=== PATIENT | female | born 1970 | race Caucasian/White ===

== ENCOUNTER 2020-09-10 11:42 | Outpatient (CLI) | payer BC, SELFPAY ==
[2020-09-10 12:58] LABS: Alanine Aminotransferase 20 U/L (4-35); Albumin Level 4.3 g/dL (3.5-5.1); Alkaline Phosphatase 46 U/L (38-126); Anion Gap 12 mmol/L (8-16); Aspartate Amino Transferase 24 U/L (14-36); Bilirubin,Total 0.3 mg/dL (0.2-1.3); Blood Urea Nitrogen 10 mg/dL (7-17); Calcium 9.4 mg/dL (8.4-10.2); Carbon Dioxide 27 mmol/L (22-30); Chloride 102 mmol/L (98-107); Cholesterol 225 mg/dL (0-200); Estimated Glomerular Filt Rate > 60; Glucose 164 mg/dL (65-105); HDL Direct 61 mg/dL; Potassium 3.9 mmol/L (3.4-5.0); Sodium 141 mmol/L (137-145); Triglycerides 239 mg/dL (<150)
[2020-09-10 13:06] LABS: Hemoglobin A1C 5.6 % (<5.7)
[2020-09-10 13:08] LABS: LDL Cholesterol Direct 148 mg/dL
[2020-09-10 13:35] LABS: Free T4 Free Thyroxine 1.39 ng/mL (0.78-2.19)
== END 2020-09-10 11:43 | disposition home or self-care (01) ==
PROVIDERS: PCP Family Medicine; Visit Provider Physician Assistant
DX: Z13.220 Encounter for screening for lipoid disorders (principal); Z13.1 Encounter for screening for diabetes mellitus; I10 Essential (primary) hypertension; E03.9 Hypothyroidism, unspecified
CPT/HCPCS: 36415; 80053; 80061; 83036; 84439; 84443

== ENCOUNTER 2022-06-23 15:17 | Outpatient (CLI) | payer OTHER, BC, SELFPAY ==
[2022-06-23 15:49] LABS: Hemoglobin A1C 6.3 % (<5.7)
[2022-06-23 15:52] LABS: Alanine Aminotransferase 29 U/L (6-35); Albumin Level 4.4 g/dL (3.5-5.1); Alkaline Phosphatase 44 U/L (38-126); Anion Gap 14 mmol/L (8-16); Aspartate Amino Transferase 24 U/L (14-36); Bilirubin,Total 0.3 mg/dL (0.2-1.3); Blood Urea Nitrogen 37 mg/dL (7-17); Calcium 9.6 mg/dL (8.4-10.2); Carbon Dioxide 25 mmol/L (22-30); Chloride 100 mmol/L (98-107); Cholesterol 190 mg/dL (0-200); Estimated Glomerular Filt Rate 40; Glucose 122 mg/dL (65-110); HDL Direct 47 mg/dL; Potassium 3.7 mmol/L (3.4-5.0); Sodium 139 mmol/L (137-145); Triglycerides 236 mg/dL (<150)
[2022-06-23 16:03] LABS: LDL Cholesterol Direct 108 mg/dL
[2022-06-23 16:13] LABS: Free T4 Free Thyroxine 2.12 ng/mL (0.78-2.19)
[2022-06-23 16:22] LABS: Thyroid Stimulating Hormone < 0.015 uIU/mL (0.465-4.680)
== END 2022-06-23 15:18 | disposition home or self-care (01) ==
PROVIDERS: PCP Family Medicine; Visit Provider Family Medicine
DX: E11.9 Type 2 diabetes mellitus without complications (principal); E03.9 Hypothyroidism, unspecified
CPT/HCPCS: 36415; 80053; 80061; 83036; 84439; 84443

== ENCOUNTER 2022-11-22 07:25 | Outpatient (CLI) | payer OTHER, SELFPAY ==
[2022-11-22 08:08] LABS: Alanine Aminotransferase 29 U/L (6-35); Albumin Level 4.7 g/dL (3.5-5.1); Alkaline Phosphatase 50 U/L (38-126); Anion Gap 8 mmol/L (8-16); Aspartate Amino Transferase 30 U/L (14-36); Bilirubin,Total 0.4 mg/dL (0.2-1.3); Blood Urea Nitrogen 22 mg/dL (7-17); Calcium 9.7 mg/dL (8.4-10.2); Carbon Dioxide 30 mmol/L (22-30); Chloride 104 mmol/L (98-107); Estimated Glomerular Filt Rate 47; Glucose 128 mg/dL (65-110); Sodium 142 mmol/L (137-145)
[2022-11-22 08:36] LABS: Thyroid Stimulating Hormone 0.864 uIU/mL (0.465-4.680)
[2022-11-22 08:59] LABS: Hemoglobin A1C 5.9 % (<5.7)
[2022-11-22 09:42] LABS: Free T4 Free Thyroxine 1.58 ng/mL (0.78-2.19)
== END 2022-11-22 07:26 | disposition home or self-care (01) ==
PROVIDERS: PCP Physician Assistant; Visit Provider Physician Assistant
DX: R73.03 Prediabetes (principal); E03.9 Hypothyroidism, unspecified; I10 Essential (primary) hypertension
CPT/HCPCS: 36415; 80053; 83036; 84439; 84443

== ENCOUNTER 2023-02-04 13:59 | Outpatient (CLI) | payer OTHER, SELFPAY ==
[2023-02-04 14:18] LABS: Hematocrit 37.6 % (37.0-47.0); Hemoglobin 12.5 g/dL (12.0-15.0); Mean Corpuscular HGB Conc 33.2 g/dl (32-36); Mean Corpuscular Hemoglobin 30.4 pg (26-34); Mean Corpuscular Volume 91.5 fl (80-100); Mean Platelet Volume 9.9 fl (7.4-10.4); Platelet Count Result 351 k/mm3 (150-375); Red Blood Count 4.11 M/mm3 (4.2-5.4); Red Cell Distribution Width 13.4 % (11.5-14.5); White Blood Count 8.3 K/mm3 (4.5-10.0)
[2023-02-04 14:30] LABS: Alanine Aminotransferase 39 U/L (6-35); Albumin Level 4.6 g/dL (3.5-5.1); Alkaline Phosphatase 43 U/L (38-126); Anion Gap 8 mmol/L (8-16); Aspartate Amino Transferase 31 U/L (14-36); Bilirubin,Total 0.5 mg/dL (0.2-1.3); Blood Urea Nitrogen 19 mg/dL (7-17); Calcium 9.4 mg/dL (8.4-10.2); Carbon Dioxide 29 mmol/L (22-30); Chloride 102 mmol/L (98-107); Estimated Glomerular Filt Rate 58; Glucose 102 mg/dL (65-110); Potassium 3.6 mmol/L (3.4-5.0); Sodium 139 mmol/L (137-145)
[2023-02-04 15:41] LABS: Vitamin B12 > 1000.0 pg/mL (239-931)
== END 2023-02-04 14:00 | disposition home or self-care (01) ==
PROVIDERS: PCP Family Medicine; Visit Provider Physician Assistant
DX: R53.83 Other fatigue (principal); I10 Essential (primary) hypertension
CPT/HCPCS: 36415; 80053; 82607; 82746; 85027

== ENCOUNTER 2023-03-11 09:10 | Outpatient (CLI) | payer OTHER, SELFPAY ==
--- NOTE | 2023-03-24 06:32 | WPDHOMESLEEP ---
Sleep Study - Home Unattended Date of Study: 03/11/23 Ordering Provider: KELSEA Rodriguez Interpreting Provider: Lisbeth Dailey MD Home Sleep Study Type: Watch PAT Height: 1.63 m Weight: 101.151 kg Body Mass Index: 38.2 Neck Circumference (inches): 16 [place]: 5 Reason for Sleep Study Daytime hypersomnia, poor sleep, nighttime awakenings. Sleep History Cathy Talley is a 53-year-old female with history of hypertension, hyperlipidemia, hypothyroidism, asthma, and depression who underwent a home sleep study ordered by her primary care provider for evaluation of snoring, poor sleep and daytime hypersomnia. She rarely awakens from sleep short of breath. She rarely awakens at night with heartburn, belching or cough.? She frequently snores and occasionally snores loudly enough that others complain. She frequently has trouble sleeping when she has a cold. She never suddenly wakes up gasping for breath during the night. She rarely has breathing problems at night. She constantly sweats excessively at night. She occasionally notices her heart pounding or beating irregularly during the night. She rarely falls asleep during the day. She never falls asleep involuntarily or while driving. She occasionally experiences loss of muscle tone with strong emotion. She occasionally has trouble at work because of sleepiness. She never feels paralyzed on waking or falling asleep. She frequently experiences vivid dreams upon waking or falling asleep. She frequently feels afraid of going to sleep. She occasionally has nightmares. She frequently recalls her dreams. She constantly has thoughts racing through her mind. She rarely feels sad or depressed. She rarely feels anxiety or worry about things. She occasionally notices parts of her body jerk. She rarely kicks during the night. She occasionally feels crawling or aching feelings in her legs. She rarely feels leg pain at night. She frequently grinds her teeth and frequently has morning jaw pain. She occasionally feels bothered by pain during the day and is rarely awakened by pain during the night. She frequently wakes up feeling stiff, sore, and achy in the morning with pain in her neck, spine, or joints. She works weekends and is off work during the week. Her normal bedtime is around midnight on the weekdays and same on the weekends, taking 1 to 2 hours to fall asleep. She typically gets 4-5 hours of sleep or less per night. Her wake up time is around 6am on the weekdays and 7 am on the weekends. She typically wakes up around 2 to 3 times per night, can be awake 1 to 2 hours at a time. She occasionally watches TV before falling asleep. She occasionally takes naps in the afternoon or evening but does not feel refreshed after a short [id number] nap. Habits:? Never tobacco smoker. Her caffeine use is up to 1 caffeinated beverage per day, but not every day. No alcohol or recreational substances. [facility] Past Medical History Medical History Allergic rhinitis, unspecified Asthma Depression Essential (primary) hypertension Hyperlipidemia, unspecified Hypothyroidism, unspecified Nontoxic goiter, unspecified Obesity Surgical History Surgical History H/O excision of ganglion cyst 06/1995 History of bariatric surgery DANIELLE procedure 08/2008 History of delivery History of cholecystectomy 07/1997 History of endometrial ablation 2012 History of total abdominal hysterectomy and bilateral salpingo-oophorectomy 11/20/2017 History of tubal ligation 2012 Family History Family History Other Diabetes mellitus Family history of arthritis Family history of cardiovascular disease Hypertension Social History Social History Smoking status: Never smoker Alcohol intake: curr
[2023-03-24 06:39] VITALS: BMI 38.2
== END 2023-03-12 11:50 | disposition home or self-care (01) ==
LOC: ANHCSM 09:11
PROVIDERS: PCP Family Medicine; Visit Provider Physician Assistant
DX: G47.33 Obstructive sleep apnea (adult) (pediatric) (principal); I10 Essential (primary) hypertension; E78.5 Hyperlipidemia, unspecified; E03.9 Hypothyroidism, unspecified
CPT/HCPCS: 95800

== ENCOUNTER 2024-07-27 07:35 | Outpatient (CLI) | payer OTHER, SELFPAY ==
[2024-07-27 08:18] LABS: LDL Cholesterol Direct 113 mg/dL
[2024-07-27 08:21] LABS: Alanine Aminotransferase 23 U/L (6-35); Albumin Level 4.8 g/dL (3.5-5.1); Alkaline Phosphatase 59 U/L (38-126); Anion Gap 10 mmol/L (4-12); Aspartate Amino Transferase 25 U/L (14-36); Bilirubin,Total 0.5 mg/dL (0.2-1.3); Blood Urea Nitrogen 22 mg/dL (7-17); Calcium 9.9 mg/dL (8.4-10.2); Carbon Dioxide 30 mmol/L (22-30); Chloride 99 mmol/L (98-107); Cholesterol 199 mg/dL (0-200); Estimated Glomerular Filt Rate 58; Glucose 100 mg/dL (65-110); HDL Direct 61 mg/dL; Potassium 3.5 mmol/L (3.4-5.0); Sodium 139 mmol/L (137-145); Triglycerides 91 mg/dL (<150)
[2024-07-27 08:37] LABS: Thyroid Stimulating Hormone 0.455 uIU/mL (0.465-4.680)
[2024-07-27 10:28] LABS: Free T4 Free Thyroxine 1.64 ng/mL (0.78-2.19)
== END 2024-07-27 07:36 | disposition home or self-care (01) ==
LOC: ANHLAB 07:39
PROVIDERS: PCP Family Medicine; Visit Provider Family Medicine
DX: E03.9 Hypothyroidism, unspecified (principal); I10 Essential (primary) hypertension; E78.5 Hyperlipidemia, unspecified
CPT/HCPCS: 36415; 80053; 80061; 84439; 84443